=== PATIENT | male | born 1960 | race Caucasian/White ===

== ENCOUNTER 2019-01-24 09:41 | Inpatient (IN) | payer OTHER ==
[2019-01-24] VITALS (24 sets, daily range): BP systolic 110–163; BP diastolic 0–112; TEMP 97.9–98.7; Ht 170.2 cm; Wt 81.4 kg
[~2019-01-24] VITALS: Ht 170.2 cm; Wt 81.4 kg
[2019-01-24 11:04] LABS: PLATELET COUNT 205 K/uL (142-355)
[2019-01-24 11:13] LABS: POTASSIUM 4.3 mmol/L (3.6-5.2); SODIUM 134 mmol/L (136-145)
[2019-01-25] VITALS (10 sets, daily range): BP systolic 117–170; BP diastolic 69–105; TEMP 97.4–98.4
[2019-01-25 06:03] LABS: PLATELET COUNT 196 K/uL (142-355)
[2019-01-25 06:18] LABS: POTASSIUM 3.6 mmol/L (3.6-5.2)
[2019-01-25] MEDS ORDERED: INSU300I SC (13:41)
[2019-01-25] MEDS ORDERED: METF500T PO (13:41)
== END 2019-01-25 15:10 | DRG 638 ==
LOC: ED 09:52 → PCU 11:20
PROVIDERS: Family Medicine; ADMIT Family Medicine
DX: E13.10 Other specified diabetes mellitus with ketoacidosis without coma (principal); I48.92 Unspecified atrial flutter; I25.10 Atherosclerotic heart disease of native coronary artery without angina pectoris; I10 Essential (primary) hypertension; R63.1 Polydipsia; E86.0 Dehydration; E78.49 Other hyperlipidemia; R00.0 Tachycardia, unspecified; N28.9 Disorder of kidney and ureter, unspecified
CPT/HCPCS: 36415; 36600; 80053; 80061; 81000; 81002; 82805; 82962; 83036; 83880; 84443; 84484; 85027; 93005; 96360; 96361; 96375; 99285; J1815